=== PATIENT | male | born 1985 | race African-American/Black ===

== ENCOUNTER 2021-01-16 18:20 | Emergency (ER) | payer OTHER ==
[~2021-01-16] VITALS: Ht 180.3 cm; Wt 81.6 kg
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
--- NOTE | 2021-01-16 18:52 | NUR ---
PATIENT TAKEN TO CT.
--- NOTE | 2021-01-16 19:51 | NUR ---
PT AWAKE, AAOX4. AMBULATORY WITH STEADY GAIT. AWARE
--- NOTE | 2021-01-16 20:49 | NUR ---
PT MEDICALLY CLEARED FOR DISCHARGE. AMBULATORY WITH STEADY GAIT. INSTRUCTED NOT TO DRIVE, PT VERBALIZED UNDERSTANDING AND WAS PICKED UP BY FRIEND
[2021-01-16 20:50] VITALS: BP 120/79
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
== END 2021-01-16 21:22 | disposition home or self-care (01) ==
LOC: ER 18:23
DX: S00.03XA Contusion of scalp, initial encounter (principal); S00.81XA Abrasion of other part of head, initial encounter; F10.129 Alcohol abuse with intoxication, unspecified; W10.8XXA Fall (on) (from) other stairs and steps, initial encounter; Y93.E1 Activity, personal bathing and showering; Y92.89 Other specified places as the place of occurrence of the external cause; Y99.8 Other external cause status; Y90.9 Presence of alcohol in blood, level not specified
CPT/HCPCS: 70450; 72125; 99285; L0172